=== PATIENT | female | born 1990 | race Caucasian/White ===

== ENCOUNTER → 2016-06-20 | Outpatient (CLI) | payer OTHER ==
[~2016-06-20] MED LIST: IBUP-232 PO; PERI8.6T PO; PRENTAB81 PO
== END ==
LOC: CLAB 06:36
PROVIDERS: ATTEND Obstetrics & Gynecology
DX: O36.0930 Maternal care for other rhesus isoimmunization, third trimester, not applicable or unspecified (principal); Z3A.28 28 weeks gestation of pregnancy
CPT/HCPCS: 36415; 86850; 86900; 86901; 96372; J2790; 90384

== ENCOUNTER 2016-09-10 00:30 | Inpatient (IN) | payer OTHER ==
[~2016-09-10] VITALS: Ht 157.5 cm; Wt 82.1 kg
[2016-09-10] VITALS (60 sets, daily range): BP systolic 105–153; BP diastolic 57–94; PULSE 96–157; RESP 16–18; TEMP 98.3–99.2
[2016-09-10] MEDS ORDERED: PRENTAB81 PO (01:09)
[2016-09-10] MEDS ORDERED: LACTATED RINGER'S 1000 ML INJ 1,000 ML IV SCH (01:17)
[2016-09-10] MEDS ORDERED: LACTATED RINGER'S 1000 ML INJ 1,000 ML IV PRN (01:17)
[2016-09-10] MEDS ORDERED: PENICILLIN G POTASSIUM INJ 5,000,000 UNITS in SODIUM CHLORIDE 0.9% INJ 100 ML IV ONE (01:30)
[2016-09-10] MEDS ORDERED: OXYTOCIN 30 UNITS-500ML PREMIX 500 ML IV ONE (01:30)
[2016-09-10] MEDS ORDERED: LIDOCAINE HCL 1% 50 ML VIAL I-DERMAL PRN (01:30)
[2016-09-10] MEDS ORDERED: MINERAL OIL 10 ML VIAL TOPICAL PRN (01:30)
[2016-09-10] MEDS ORDERED: CITRIC ACID-SODIUM CITRATE LIQ 30 ML UDC PO SCH (01:30)
[2016-09-10] MEDS ORDERED: SODIUM CHLORID 0.9% 500 ML INJ 500 ML IV PRN (01:30)
[2016-09-10] MEDS ORDERED: OXYTOCIN 30 UNITS-500ML PREMIX 500 ML IV SCH (01:30)
[2016-09-10] MEDS ORDERED: ONDANSETRON HCL 4 MG/2 ML VIAL IV PRN (01:30)
[2016-09-10] MEDS ORDERED: LIDOCAINE HCL 1% 50 ML VIAL INFIL PRN (01:30)
--- NOTE | 2016-09-10 01:32 | PD ---
HPI Chief Complaint labor, leaking fluid Date Seen: September 10, 2016 Time Seen: 01:15 Travel History International Travel<30 Days: No Contact w/Intl Traveler<30Days: No Known Affected Area: No History of Present Illness HPI Pt is a 26 y/o G1 with IUP at 39.5 who presents with c/o gush of fluid at 2340 and contractions every 2-4 minutes. Pt denies vb. +FM Para: 0 : 1 History Past Medical History Medical History: Denies Significant Hx Past Surgical History Surgical History: No Previous Surgery Family History Family History: Negative Social History Alcohol Use: No Tobacco Use: No Substance Abuse: No Allergies-Medications (Allergen,Severity, Reaction): Coded Allergies: No Known Allergies (Unverified , 09/10/16) Home Meds Reported Medications Vit W/ Ferrous Fumara (Pnv Folic Acid + Iron Mul 27-1 mg)1 Tab Tab1 Tab PO DAILY 09/10/16 Review of Systems General / Constitutional: Weight Gain, No: Fever, Weight Loss, Chills, Other Eyes: No: Diploplia, Blurred Vision, Visual changes, Pain, Photophobia, Other HENT: No: Headaches, Vertigo, Dental Difficulties, Lightheadedness, Other Cardiovascular: No: Irregular Rhythm, Chest Pain or Discomfort, Palpitations, Tachycardia, Syncope, Varicosities, Edema, Cyanosis, Other Respiratory: No: Cough, Short of Breath, Wheezing, Other Gastrointestinal: Abdominal Pain, No: Nausea, Vomiting, Diarrhea, Hematemesis , Hematochezia, Constipation, Changes in Bowel Habits, Indigestion, Loss of Appetite, Other Genitourinary: No: Urgency, Frequency, Dysuria, Nocturia, Hematuria, Decreased Urinary Output, Oliguria, Hesitancy, Dribbling, Incontinence, Pelvic Pain, Dyspareunia, Discharge, Menorrhagia, Vaginal Bleeding, Other Musculoskeletal: No: Limited ROM, Weakness, Cramping, Edema, Pain, Other Skin: No Rash, No Itching, No Dryness, No Lumps, No Change in Pigmentation, No Change in Nails, No Alopecia, No Lesions, No Breast Lumps, No Breast Tenderness , No Breast Swelling, No Other Neurologic: No: Weakness, Dizziness, Syncope, Focal Abnormalities, Coordination Problem, Headache, Slurred Speech, Seizures, Other Psychiatric: No: Anxiety, Depression, Suicidal Ideations, Disorder of Thought, Mood Disorder, Substance Abuse, Homicidal Ideation, Other Endocrine: No: Heat Intolerance, Cold Intolerance, Polydipsia, Polyuria, Other Hematologic/Lymphatic: No Easy Bruising, No Lymph Node Enlargement, No Other Physical Exam 137/89, 114, 16, 98.4 Narrative GENERAL: Well-nourished, well-developed patient. SKIN: Warm and dry. HEAD: Normocephalic and atraumatic. EYES: No scleral icterus. No injection or drainage. ENT: No nasal drainage noted. Mucous membranes pink. Airway patent. NECK: Supple, trachea midline. No JVD. CARDIOVASCULAR: Regular rate and rhythm without murmurs, gallops, or rubs. RESPIRATORY: Breath sounds equal bilaterally. No accessory muscle use. ABDOMEN/GI: Abdomen soft, non-tender, bowel sounds present, no rebound, no guarding Gravid GENITOURINARY: External Genitalia: intact and normal in appearance cervix 4/80/0 by RN exam amnisure faintly + Uterine Contractions: q 2-4 min FHT's: Category: [1] Baseline: 140 Reactive: yes Variability: mod Decels: none EXTREMITIES: No cyanosis or edema. BACK: Nontender without obvious deformity. No CVA tenderness. NEUROLOGICAL: Awake and alert. Motor and sensory grossly within normal limits. Five out of 5 muscle strength in all muscle groups. Normal speech. Data Data Vital Signs Reviewed: Yes Orders Admit To Inpatient (09/10/16 ) Code Status (09/10/16:17) Vital Signs (Adult) .Per protocol (09/10/16:17) Heart (09/10/16:17) Amnioinfusion (09/10/16 01:17) Urinary Catheter Management .ONCE (09/10/16:17) Diet Liquid (09/10/16 Breakfast) Lactated Ringer's 1000 Ml Inj (Lr 1000 M (09/10/16 01:17) Lactated Ringer's 1000 Ml Inj (Lr 1000 M (09/10/16 01:17) Sodium Chlorid 0.9% 500 Ml Inj (Ns 500 M (09/10/16 01:30) Sodium Chlor 0.9% 1000 Ml Inj (Ns 1000 M (09/10/16 01:37) Lidocaine 1% Inj (50 Ml) (Xylocaine 1% I (09/10/16 01:30) Citric Acid-Sodium Citrate Liq (Bicitra (09/10/16 01:30) Ondansetron Inj (Zofran Inj) (09/10/16 01:30) Fentanyl Inj (Fentanyl Inj) (09/10/16 01:30) Fentanyl Inj (Fentanyl Inj) (09/10/16 01:30) Penicillin G Potassium Inj (Pfizerpen-G (09/10/16 01:30) Penicillin G Potassium Inj (Pfizerpen-G (09/10/16 05:30) Complete Blood Count With Diff (09/10/16:17) Hold Clot (09/10/16:17) Abo/Rh Blood Type (09/10/16:17) Resp Oxygen Non Rebreathe Mask (09/10/16 ) ^ Epidural / Intrathecal Infus (09/10/16:17) Oxytocin 30 Units-500ml Premix (Pitocin (09/10/16 01:30) Lidocaine 1% Inj (50 Ml) (Xylocaine 1% I (09/10/16 01:30) Light Mineral Oil (Muri-Lube Oil) (09/10/16 01:30) Inpatient Certification (09/10/16 ) MDM Medical Record Reviewed: Yes (Rh neg, GBS+) Narrative Course / MDM 26 y/o G1 with IUP at 39.5 wks with labor/SROM --admit for delivery --routine admission labs --epidural on demand --GBS+--penicillin per protocol --Rh neg Dr. Recio notified of pt status and admission Marlys Greco MD September 10, 2016 01:32
[2016-09-10] MEDS ORDERED: SODIUM CHLOR 0.9% 1000 ML INJ 1,000 ML IV PRN (01:37)
[2016-09-10 01:41] LABS: BASOPHIL % 0.3 % (0.0-2.0); EOSINOPHIL # 0.1 TH/MM3 (0-0.4); EOSINOPHIL % 0.4 % (0.0-4.0); HEMATOCRIT 36.4 % (35.0-46.0); HEMO FLAGS DIFF FINAL; LYMPH % 10.5 % (9.0-44.0); LYMPHOCYTE # 1.9 TH/MM3 (1.0-4.8); MEAN CELL VOLUME 82.5 FL (80.0-100.0); MEAN CORPUSCULAR HEMOGLOBIN 27.3 PG (27.0-34.0); MONO % 6.6 % (0.0-8.0); NEUT % 82.2 % (16.0-70.0); PLATELET COUNT 208 TH/MM3 (150-450); RED BLOOD COUNT 4.41 MIL/MM3 (4.00-5.30); RED CELL DISTRIBUTION WIDTH 14.6 % (11.6-17.2); WHITE BLOOD COUNT 18.2 TH/MM3 (4.0-11.0)
[2016-09-10] MEDS ORDERED: fentaNYL 2MCG-BUPIV 0.125% INJ 100 ML ONE (01:57)
[2016-09-10 02:23] LABS: BLOOD, URINE SMALL (NEG); COMMENT (UR) CULTURE INDICATED; CULTURE IF INDICATED CULTURE INDICATED; GLUCOSE,URINE NEG (NEG); KETONE, URINE NEG (NEG); MUCUS URINE FEW /lpf (OCC); NITRITE,URINE NEG (NEG); SQUAMOUS EPITHELIAL CELL URINE 4 /hpf (0-5); URINE COLOR YELLOW (YELLW/STRAW)
[2016-09-10] MEDS ORDERED: DO NOT ADMINISTER ANTICOAGULANTS PRN (03:30)
[2016-09-10] MEDS ORDERED: ePHEDrine/NS 25 MG/5 ML SYR IV PRN (03:30)
[2016-09-10] MEDS ORDERED: NO SYSTEM NARCOTICS PRN (03:30)
[2016-09-10] MEDS ORDERED: fentaNYL 2MCG-BUPIV 0.125% 100 ML EPIDURAL SCH (03:30)
[2016-09-10] MEDS ORDERED: PENICILLIN G POTASSIUM INJ 2,500,000 UNITS in SODIUM CHLORIDE 0.9% INJ 100 ML IV SCH (05:30)
--- NOTE | 2016-09-10 08:09 | PD.OB.DELI ---
Delivery Date: September 10, 2016 Anesthesia: Epidural Episiotomy: None Vaginal Delivery: Normal, Spontaneous Presentation: Compound (left hand), Vertex Nuchal Cord: None Delayed cord clamping (45 sec): Yes : Male One Minute : 8 Five Minute : 9 Weight: 6#9oz Placenta: Spontaneous delivery, Intact, 3 vessel cord Laceration: Vaginal laceration, 1 deg Repair: Chromic running Additional Information EBL 200 mL healthy male infant "Jt" for circ prior to discharge Danni Recio MD September 10, 2016 08:09
[2016-09-10] MEDS ORDERED: PERI8.6T PO (08:11)
[2016-09-10] MEDS ORDERED: IBUP-232 PO (08:11)
--- NOTE | 2016-09-10 08:12 | HHI.DCPOC ---
Discharge Care Plan Diagnosis: (1) Labor and delivery indication for care or intervention (2) (spontaneous vaginal delivery) Your Health Problems Are: Vaginal delivery Report Symptoms to Your Doctor -Temperate above 100.5 degrees -Redness, of incision or excessive or foul smelling drainage -Unusual pain or calf pain -Increased vaginal bleeding -Painful or difficulty urinating -Feelings of extreme sadness or anxiety after 2 weeks Goals to Promote Your Health * To prevent worsening of your condition and complications * To maintain your health at the optimal level Directions to Meet Your Goals Take your medications as prescribed Follow your dietary instruction Follow activity as directed Ensure plenty of rest for recovery Drink fluids for hydration Keep your appointments as scheduled Take your immunizations and boosters as scheduled If your symptoms worsen call your PCP, if no PCP go to Urgent Care Center or Emergency Room Smoking is Dangerous to Your Health. Avoid second hand smoke Call the 24-hour crisis hotline for domestic abuse at Danni Recio MD September 10, 2016 08:12
[2016-09-10] MEDS ORDERED: ALUMINUM/MAGNESIUM/SIMETH 30 ML CUP PO PRN (08:15)
[2016-09-10] MEDS ORDERED: ACETAMINOPHEN 325 MG TAB PO PRN (08:15)
[2016-09-10] MEDS ORDERED: BENZOCAINE 20% TOPICAL SPRAY 60 ML CAN TOPICAL PRN (08:15)
[2016-09-10] MEDS ORDERED: SODIUM CHLORIDE 0.9% FLUSH 10 ML FLUSH IV FLUSH PRN (08:15)
[2016-09-10] MEDS ORDERED: ZOLPIDEM TARTRATE 5 MG TAB PO PRN (08:15)
[2016-09-10] MEDS ORDERED: ONDANSETRON ODT 4 MG TAB PO PRN (08:15)
[2016-09-10] MEDS ORDERED: WITCH HAZEL 50%/GLYCERIN 12.5% 40 PAD JAR TOPICAL PRN (08:15)
[2016-09-10] MEDS ORDERED: IBUPROFEN 600 MG TAB PO PRN (08:15)
[2016-09-10] MEDS ORDERED: MEASLES, MUMPS, RUBELLA VACCINE 0.5 ML VIAL SQ ONE (16:00)
[2016-09-10] MEDS ORDERED: DIPHTH/TETANUS/ACEL PERTUSSIS (BOOSTER) 0.5 ML VIAL/PFS IM ONE (16:00)
[2016-09-10] MEDS: SODIUM CHLORIDE 0.9% FLUSH 10 ML FLUSH IV FLUSH SCH (21:00)
[2016-09-10] MEDS: DOCUSATE SODIUM 50 MG/SENNA 8.6 MG TAB PO SCH (21:00)
[2016-09-11 07:09] VITALS: BP 134/81; PULSE 86; RESP 18; TEMP 98.2
--- NOTE | 2016-09-11 09:00 | HHI.OB ---
Subjective Post Day: 1 Remarks doing well, bottlefeeding Objective Vitals/I&O Vital Signs Date Time Temp Pulse Resp B/P Pulse Ox O2 Delivery O2 Flow Rate FiO2 09/11/16 07:09 98.2 18 09/11/16 07:09 86 134/81 09/10/16 10:08 98.5 117 16 129/82 09/10/16 09:30 17 09/10/16 09:15 126 130/80 09/10/16 09:00 114 127/87 Objective Remarks GENERAL: Well-nourished, well-developed patient. CARDIOVASCULAR: Regular rate and rhythm without murmurs, gallops, or rubs. RESPIRATORY: Breath sounds equal bilaterally. No accessory muscle use. ABDOMEN/GI: Abdomen soft, non-tender. Fundus: Firm, non-tender at umbilicus. GENITOURINARY: Light to moderate bleeding. EXTREMITIES: No cyanosis or edema, non-tender, without signs of DVT. Medications and IVs Current Medications Medications (Trade) Dose Ordered Sig/Maria A Route Start Time Stop Time Status Last Admin (NS Flush) 2 ml BID IV FLUSH 09/10/16 09:00 (NS Flush) 2 ml UNSCH PRN IV FLUSH 09/10/16 08:15 (Tylenol) 650 mg Q4H PRN PO 09/10/16 08:15 (Motrin) 600 mg Q6H PRN PO 09/10/16 08:15 (Americaine 20% Top Spr) 1 spray Q4H PRN TOPICAL 09/10/16 08:15 09/11/16 00:36 (Tucks Pads) 1 applic QID PRN TOPICAL 09/10/16 08:15 09/11/16 00:36 (Jennifer-Colace) 1 tab Q12H PO 09/10/16 21:00 (Ambien) 5 mg HS PRN PO 09/10/16 08:15 (Mag-Al Plus Susp Liq) 15 ml Q8H PRN PO 09/10/16 08:15 (Zofran Odt) 4 mg Q6H PRN PO 09/10/16 08:15 Assessment/Plan Problem List: (1) (spontaneous vaginal delivery) Assessment and Plan PPD #1 male Discharge Planning routine Attending Attestation pt seen by Heather Higuera MD September 11, 2016 09:00
[2016-09-11 20:09] VITALS: BP 133/82; PULSE 91; RESP 18; TEMP 98.6
[2016-09-11] MEDS: SODIUM CHLORIDE 0.9% FLUSH 10 ML FLUSH IV FLUSH SCH (20:29)
[2016-09-11] MEDS: DOCUSATE SODIUM 50 MG/SENNA 8.6 MG TAB PO SCH (20:29)
--- NOTE | 2016-09-12 08:53 | HHI.OB ---
Subjective Post Day: 2 Remarks Doing well Baby is good Pain is well controlled. Objective Vitals/I&O Vital Signs Date Time Temp Pulse Resp B/P Pulse Ox O2 Delivery O2 Flow Rate FiO2 09/11/16 20:09 98.6 91 18 133/82 Objective Remarks GENERAL: Well-nourished, well-developed patient. CARDIOVASCULAR: Regular rate and rhythm without murmurs, gallops, or rubs. RESPIRATORY: Breath sounds equal bilaterally. No accessory muscle use. ABDOMEN/GI: Abdomen soft, non-tender. Fundus: Firm, non-tender at umbilicus. GENITOURINARY: Light to moderate bleeding. EXTREMITIES: No cyanosis or edema, non-tender, without signs of DVT. Medications and IVs Current Medications Medications (Trade) Dose Ordered Sig/Maria A Route Start Time Stop Time Status Last Admin (NS Flush) 2 ml BID IV FLUSH 09/10/16 09:00 (NS Flush) 2 ml UNSCH PRN IV FLUSH 09/10/16 08:15 (Tylenol) 650 mg Q4H PRN PO 09/10/16 08:15 (Motrin) 600 mg Q6H PRN PO 09/10/16 08:15 (Americaine 20% Top Spr) 1 spray Q4H PRN TOPICAL 09/10/16 08:15 09/11/16 00:36 (Tucks Pads) 1 applic QID PRN TOPICAL 09/10/16 08:15 09/11/16 00:36 (Jennifer-Colace) 1 tab Q12H PO 09/10/16 21:00 (Ambien) 5 mg HS PRN PO 09/10/16 08:15 (Mag-Al Plus Susp Liq) 15 ml Q8H PRN PO 09/10/16 08:15 (Zofran Odt) 4 mg Q6H PRN PO 09/10/16 08:15 Assessment/Plan Problem List: (1) (spontaneous vaginal delivery) Assessment and Plan PPD #2 Routine care Discharge Planning routine Esthela Miguel MD September 12, 2016 08:53
[2016-09-12 09:00] VITALS: BP 121/88; PULSE 96; RESP 18; TEMP 97.2
[2016-09-12 09:33] VITALS: BP 121/88; PULSE 96; RESP 18; TEMP 97.7; O2SAT 100
== END 2016-09-12 11:44 | disposition home or self-care (01) | DRG 775 ==
LOC: HOBED 00:30 → H2EB 01:22 → H1EA 09:49
PROVIDERS: ADMIT Obstetrics & Gynecology; ATTEND Obstetrics & Gynecology
PROC: 10E0XZZ Delivery of Products of Conception, External Approach (ICD-10-PCS; principal; 2016-09-10)
PROC: 0HQ9XZZ Repair Perineum Skin, External Approach (ICD-10-PCS; 2016-09-10)
PROC: 00HU33Z Insertion of Infusion Device into Spinal Canal, Percutaneous Approach (ICD-10-PCS; 2016-09-10)
PROC: 3E0R3CZ (ICD-10-PCS; 2016-09-10)
DX: O32.6XX0 Maternal care for compound presentation, not applicable or unspecified (principal); O71.4 Obstetric high vaginal laceration alone; Z37.0 Single live birth; Z3A.39 39 weeks gestation of pregnancy; O99.824 Streptococcus B carrier state complicating childbirth
CPT/HCPCS: 59025; 81001; 84112; 85025; 85461; 86850; 86900; 86901; 87086; 90384; J2540; J2590; J2790; J7120